=== PATIENT | female | born 1995 | race Two or more races ===

== ENCOUNTER 2016-10-07 10:14 | Emergency (ER) | payer MEDICAID ==
[~2016-10-07] VITALS: Ht 162.6 cm; Wt 60.8 kg
[2016-10-07 10:36] VITALS: BP 133/87
== END 2016-10-07 10:53 | disposition home or self-care (01) ==
LOC: ER 10:18
DX: H66.92 Otitis media, unspecified, left ear (principal)

== ENCOUNTER 2017-04-10 23:59 | Emergency (ER) | payer MEDICAID ==
[~2017-04-10] VITALS: Ht 162.6 cm; Wt 63.5 kg
[2017-04-11 00:39] LABS: Basophils # (auto) 0.1 uL; Basophils % (auto) 0.5 % (0.0-2.0); Eosinophils # (auto) 0.2 uL; Eosinophils % (auto) 1.3 % (0.0-7.0); Hematocrit 38.8 % (36.0-46.0); Hemoglobin 12.7 g/dL (12.2-16.2); Lymphocytes # (auto) 3.1 uL; Lymphocytes % (auto) 25.3 % (10.0-50.0); Mean Corpuscular Hemoglobin 27.2 pg (28.0-32.0); Mean Corpuscular Hgb Conc. 32.7 g/dL (32.0-36.0); Mean Corpuscular Volume 83.2 fL (80.0-100.0); Monocytes # (auto) 0.7 uL; Monocytes % (auto) 5.9 % (0.0-12.0); Neutrophils # (auto) 8.3 uL; Nucleated Red Blood Cells % 0.1 %; Platelet Count (auto) 288 10^3/uL (140-450); Red Blood Cells 4.66 10^6/uL (4.0-5.20); Red Cell Distribution Width 15.2 % (11.8-14.3); White Blood Cell 12.4 10^3/uL (4.4-10.8)
[2017-04-11 00:53] LABS: Albumin 3.6 g/dL (3.4-5.0); BUN/Creatinine Ratio 17.4; Calcium 8.9 mg/dL (8.5-10.1); Potassium 3.5 mmol/L (3.5-5.1)
[2017-04-11 00:56] LABS: Bilirubin, Total 0.1 mg/dL (0.2-1.0); Total Protein 7.7 g/dL (6.4-8.2)
[2017-04-11 01:11] LABS: Urine Bacteria FEW /hpf (None Seen); Urine Blood 3+ /uL (Negative); Urine Specific Gravity 1.014 (1.001-1.035); Urine WBC 211 /hpf (0 - 5)
[2017-04-11 01:15] VITALS: BP 145/89
== END 2017-04-11 01:29 | disposition home or self-care (01) ==
LOC: ER 04-11 00:01
DX: N39.0 Urinary tract infection, site not specified (principal)
CPT/HCPCS: 36415; 80053; 81001; 81025; 85025

== ENCOUNTER → 2018-04-18 | Outpatient (CLI) | payer MEDICAID | END | disposition home or self-care (01) | LOC: Rad HDHVI 15:03 | PROVIDERS: ATTEND Internal Medicine | DX: R06.02 Shortness of breath (principal); R42 Dizziness and giddiness; R00.2 Palpitations | CPT/HCPCS: 93306 ==

== ENCOUNTER → 2020-05-18 | Outpatient (CLI) | payer OTHER | END | disposition home or self-care (01) | LOC: LAB 13:42 | PROVIDERS: ATTEND Preventive Medicine Preventive Medicine/Occupational Environmental Medicine | DX: Z02.1 Encounter for pre-employment examination (principal) | CPT/HCPCS: 36415; 86706; 86735; 86762; 86765; 86787 ==

== ENCOUNTER → 2020-06-09 | Outpatient (CLI) | payer OTHER | END | disposition home or self-care (01) | LOC: LAB 14:48 | PROVIDERS: ATTEND Nurse Practitioner Family | DX: Z20.828 Contact with and (suspected) exposure to other viral communicable diseases (principal) | CPT/HCPCS: C9803; U0003 ==

== ENCOUNTER → 2020-08-26 | Outpatient (CLI) | payer MEDICAID ==
[2020-08-26 08:33] LABS: Urine Bacteria NONE SEEN /hpf (None Seen); Urine Blood 2+ /uL (Negative); Urine Specific Gravity 1.017 (1.001-1.035); Urine WBC <1 /hpf (0 - 5)
[2020-08-26 08:38] LABS: Basophils # (auto) 0.1 10 ^3/uL (0-0.2); Basophils % (auto) 0.9 % (0.0-2.0); Eosinophils # (auto) 0.1 10 ^3/uL (0-0.8); Eosinophils % (auto) 1.2 % (0.0-7.0); Hematocrit 41.1 % (36.0-46.0); Hemoglobin 13.9 g/dL (12.2-16.2); Lymphocytes # (auto) 2.5 10 ^3/uL (0.4-5.4); Lymphocytes % (auto) 29.8 % (10.0-50.0); Mean Corpuscular Hemoglobin 29.2 pg (28.0-32.0); Mean Corpuscular Hgb Conc. 33.8 g/dL (32.0-36.0); Mean Corpuscular Volume 86.3 fL (80.0-100.0); Monocytes # (auto) 0.4 10 ^3/uL (0-1.3); Monocytes % (auto) 4.3 % (0.0-12.0); Neutrophils # (auto) 5.3 10 ^3/uL (1.6-8.6); Neutrophils % (auto) 63.8 % (37.0-80.0); Platelet Count (auto) 346 10^3/uL (140-450); Red Blood Cells 4.76 10^6/uL (4.0-5.20); Red Cell Distribution Width 13.4 % (11.8-14.3); White Blood Cell 8.3 10^3/uL (4.4-10.8)
[2020-08-26 09:07] LABS: Albumin 3.4 g/dL (3.4-5.0); Calcium 9.1 mg/dL (8.5-10.1); Potassium 3.9 mmol/L (3.5-5.1)
[2020-08-26 09:12] LABS: BUN/Creatinine Ratio 13.9; Bilirubin, Total 0.4 mg/dL (0.2-1.0); Total Protein 7.7 g/dL (6.4-8.2)
[2020-08-26 09:49] LABS: Free T4 (Free Thyroxine) 1.24 ng/dL (0.89-1.76)
== END | disposition home or self-care (01) ==
LOC: LAB 08:14
PROVIDERS: ATTEND Internal Medicine
DX: D51.3 Other dietary vitamin B12 deficiency anemia (principal); I10 Essential (primary) hypertension; E11.9 Type 2 diabetes mellitus without complications; E55.9 Vitamin D deficiency, unspecified; D64.9 Anemia, unspecified; R00.2 Palpitations; R53.1 Weakness; R30.0 Dysuria
CPT/HCPCS: 36415; 80053; 80061; 81001; 82306; 82607; 83036; 84439; 84443; 85025

== ENCOUNTER → 2020-09-27 | Outpatient (CLI) | payer MEDICAID | END | disposition home or self-care (01) | LOC: Rad HDHVI 08:07 | PROVIDERS: ATTEND Internal Medicine | DX: R00.2 Palpitations (principal); R06.02 Shortness of breath | CPT/HCPCS: 93306 ==

== ENCOUNTER → 2020-10-03 | Outpatient (CLI) | payer MEDICAID ==
[~2020-10-03] VITALS: Ht 162.6 cm; Wt 65.3 kg
== END | disposition home or self-care (01) ==
LOC: Rad HDHVI 09:03
PROVIDERS: ATTEND Internal Medicine
DX: R07.9 Chest pain, unspecified (principal); Z82.49 Family history of ischemic heart disease and other diseases of the circulatory system
CPT/HCPCS: 93017

== ENCOUNTER 2024-01-24 14:30 | Emergency (ER) | payer MEDICAID ==
[~2024-01-24] VITALS: Ht 162.6 cm; Wt 75.0 kg
[2024-01-24 14:50] VITALS: PULSE 90; RESP 19; O2SAT 97
[2024-01-24] MEDS: SODIUM CHLORIDE 0.9% 1,000 ML IV ONE ×2 (14:55→16:31)
[2024-01-24 15:14] LABS: Basophils # (auto) 0.1 10 ^3/uL (0-0.2); Basophils % (auto) 0.8 % (0.0-2.0); Eosinophils # (auto) 0.1 10 ^3/uL (0-0.8); Eosinophils % (auto) 0.7 % (0.0-7.0); Hematocrit 43.6 % (36.0-46.0); Hemoglobin 14.5 g/dL (12.2-16.2); Lymphocytes # (auto) 1.8 10 ^3/uL (0.4-5.4); Mean Corpuscular Hemoglobin 29.7 pg (28.0-32.0); Mean Corpuscular Hgb Conc. 33.3 g/dL (32.0-36.0); Mean Corpuscular Volume 89.2 fL (80.0-100.0); Monocytes # (auto) 1.1 10 ^3/uL (0-1.3); Monocytes % (auto) 13.1 % (0.0-12.0); Neutrophils # (auto) 5.1 10 ^3/uL (1.6-8.6); Neutrophils % (auto) 63.4 % (37.0-80.0); Nucleated Red Blood Cells % 0.1 %; Red Blood Cells 4.89 10^6/uL (4.0-5.20); Red Cell Distribution Width 13.6 % (11.8-14.3); White Blood Cell 8.1 10^3/uL (4.4-10.8)
[2024-01-24 15:24] LABS: Chloride 105 mmol/L (98-107); Potassium 3.7 mmol/L (3.5-5.1); Sodium 136 mmol/L (136-145)
[2024-01-24 15:25] LABS: Anion Gap 4 (5-15); Calcium 10.1 mg/dL (8.7-10.4); Carbon Dioxide 27 mmol/L (20-30)
[2024-01-24 15:30] LABS: BUN/Creatinine Ratio 7.7 (10.0-20.0); Blood Urea Nitrogen 7 mg/dL (9-23); Glucose 92 mg/dL (74-106)
[2024-01-24] MEDS ORDERED: AMOX500C2 PO (16:47)
[2024-01-24] MEDS ORDERED: AZIT-185 PO (16:49)
[2024-01-24] MEDS: AZITHROMYCIN 250 MG TAB PO ONE (17:08)
[2024-01-24 17:26] VITALS: BP 123/74; PULSE 91; RESP 16; TEMP 98.9; O2SAT 95
== END 2024-01-24 18:00 | disposition home or self-care (01) ==
LOC: EEVIPCON 14:30 → ER 14:30
DX: J02.9 Acute pharyngitis, unspecified (principal); R50.9 Fever, unspecified
CPT/HCPCS: 36415; 71046; 80048; 85025; 96360; 96361; 99284; J7030

== ENCOUNTER 2024-12-17 08:31 | Day surgery (SDC) | payer BC ==
[2024-12-16 08:31] LABS: Hematocrit 45.3 % (36.0-46.0); Hemoglobin 15.1 g/dL (12.2-16.2); Mean Corpuscular Hemoglobin 30.1 pg (28.0-32.0); Mean Corpuscular Volume 90.3 fL (80.0-100.0); Nucleated Red Blood Cells % 0.1 %
[2024-12-16 08:41] LABS: Urine Protein, UAD Negative (Negative)
[2024-12-16 08:46] LABS: INR 1.05 (0.9-1.15); Partial Thromboplastin Time 27.6 SEC (24.5-34.5); Prothrombin Time 11.1 sec (9.3-11.8)
[2024-12-16 09:11] LABS: Alanine Aminotransferase 17 U/L (7-40); Alkaline Phosphatase 89 U/L (46-116); Anion Gap 8 (5-15); BUN/Creatinine Ratio 24.7 (10.0-20.0); Bilirubin, Total 0.5 mg/dL (0.2-1.0); Blood Urea Nitrogen 21 mg/dL (9-23); Calcium 10.4 mg/dL (8.7-10.4); Carbon Dioxide 27 mmol/L (20-31); Chloride 106 mmol/L (98-107); Potassium 4.3 mmol/L (3.5-5.1); Sodium 141 mmol/L (136-145); Total Protein 7.5 g/dL (5.7-8.2)
[2024-12-16 09:32] LABS: Albumin 4.8 g/dL (3.2-4.8); Glucose 67 mg/dL (74-106)
[~2024-12-17] VITALS: Ht 162.6 cm; Wt 75.3 kg
[2024-12-17] MEDS ORDERED: ceFAZolin 1GM/50ML 50 ML IV ONE (09:50)
[2024-12-17] MEDS ORDERED: PROPOFOL 10 MG/ML 20 ML IV ONE (10:34)
[2024-12-17] MEDS ORDERED: fentaNYL CITRATE 100 MCG/2 ML VL ONE (10:34)
[2024-12-17] MEDS ORDERED: MIDAZOLAM HCL 2MG/2ML 2ml VIAL (1mg/ml) ONE (10:34)
[2024-12-17] MEDS ORDERED: ROCURONIUM 10MG/ML 10ML VIAL IV ONE (10:34)
[2024-12-17] MEDS ORDERED: LIDOCAINE 2% (LOCAL ANESTH.) PF 5ml SDV ONE (10:35)
[2024-12-17] MEDS ORDERED: ONDANSETRON HCL 4 MG/2 ML VIAL ONE (10:35)
[2024-12-17] MEDS ORDERED: METOCLOPRAMIDE HCL 5MG/ml INJ 2ml VIAL ONE (10:35)
[2024-12-17] MEDS: LIDOCAINE W/ EPINEPHRINE 1% 20ML VIAL ONE (11:03)
[2024-12-17] MEDS: BUPIVACAINE HCL 0.25% P/F 10 ML VIAL ONE (11:03)
[2024-12-17] MEDS ORDERED: HYDROmorphone HCL 2 MG/ML VL/or syr ONE (11:05)
[2024-12-17] MEDS ORDERED: POVIDONE IODINE 10 % TOPICAL OINT 30GM TOP ONE (11:17)
[2024-12-17] MEDS ORDERED: SUGAMMADEX 200mg/2ml Vial (100MG/ML) IV ONE (11:18)
[2024-12-17 11:28] VITALS: PULSE 75; RESP 12; O2SAT 94
[2024-12-17] MEDS ORDERED: ACE3T PO (11:39)
[2024-12-17] MEDS ORDERED: CIPR-173 PO (11:41)
[2024-12-17] MEDS ORDERED: ONDANSETRON HCL 4 MG/2 ML VIAL IV ONE (12:00)
[2024-12-17] MEDS ORDERED: HYDROmorphone HCL 2 MG/ML VL/or syr IV PRN (12:00)
[2024-12-17] MEDS ORDERED: METOCLOPRAMIDE HCL 5MG/ml INJ 2ml VIAL IV ONE (12:00)
--- NOTE | 2024-12-17 12:00 | DVHOP ---
DATE OF SURGERY: 12/17/2024 SURGEON: Louis Rajan MD. GAS DISTRIBUTION AND EMERGENCY CLERK: Sanjay Salinas. ANESTHESIA: General endotracheal. ANESTHESIOLOGIST: Nurse cost manager. DESCRIPTION OF PROCEDURE: Under adequate anesthesia, the patient prone on the operating room table, the skin prepped and draped. A horizontal incision was made over the visible bulge of the skin on the neck. The adipose tissue was incised and the lipoma excised down to the muscle, submitted for histopathologic examination. The wound was irrigated. Irrigant was aspirated. Approximation accomplished utilizing Prolene sutures in a mattress fashion and a pressure bandage was then applied. The patient remained stable throughout the procedure, left the operating room following accurate needle and sponge count. The family was thoroughly informed in the waiting area. Louis Rajan MD PF/NGOZI TID: [id number] RECEIPT: [id number]
[2024-12-17 12:25] VITALS: BP 114/74; PULSE 87; RESP 18; O2SAT 97
== END 2024-12-17 12:40 | disposition home or self-care (01) ==
LOC: SUR 08:31 → EEVIPCON 11:30 → SUR 12:40
PROVIDERS: ATTEND Surgery
DX: D17.0 Benign lipomatous neoplasm of skin and subcutaneous tissue of head, face and neck (principal); Z98.890 Other specified postprocedural states; Z91.041 Radiographic dye allergy status
CPT/HCPCS: 21556; 36415; 80053; 81001; 84702; 85025; 85610; 85730; 88305; J0690; J1171; J2003; J2250; J2405; J2704; J2765; J3010; J3490

== ENCOUNTER 2025-01-07 07:06 | Day surgery (SDC) | payer BC ==
[2025-01-06 09:08] LABS: Urine Protein, UAD Negative (Negative)
[2025-01-06 09:11] LABS: Hematocrit 44.1 % (36.0-46.0); Hemoglobin 14.9 g/dL (12.2-16.2); Mean Corpuscular Hemoglobin 30.3 pg (28.0-32.0); Mean Corpuscular Volume 89.4 fL (80.0-100.0); Nucleated Red Blood Cells % 0.1 %
[2025-01-06 09:18] LABS: INR 1.09 (0.9-1.15); Partial Thromboplastin Time 29.6 SEC (24.5-34.5); Prothrombin Time 11.5 sec (9.3-11.8)
[2025-01-06 09:34] LABS: Alanine Aminotransferase 12 U/L (7-40); Albumin 4.7 g/dL (3.2-4.8); Alkaline Phosphatase 69 U/L (46-116); Anion Gap 8 (5-15); BUN/Creatinine Ratio 16.5 (10.0-20.0); Blood Urea Nitrogen 14 mg/dL (9-23); Carbon Dioxide 26 mmol/L (20-31); Chloride 105 mmol/L (98-107); Potassium 4.2 mmol/L (3.5-5.1); Sodium 139 mmol/L (136-145); Total Protein 7.3 g/dL (5.7-8.2)
[2025-01-06 09:35] LABS: Bilirubin, Total 0.7 mg/dL (0.2-1.0)
[2025-01-06 09:36] LABS: Calcium 10.4 mg/dL (8.7-10.4); Glucose 108 mg/dL (74-106)
[~2025-01-07] VITALS: Ht 30.5 cm; Wt 0.5 kg
[~2025-01-07 07:06] MED LIST: ACE3T PO
[2025-01-07] MEDS ORDERED: GLYCOPYRROLATE 0.2 MG/ML 1ML VIAL ONE (09:57)
[2025-01-07] MEDS ORDERED: PROPOFOL 10 MG/ML 20 ML IV ONE ×2 (09:57→10:33)
[2025-01-07] MEDS ORDERED: LIDOCAINE 1% INJ PF 5ML AMP ONE (09:57)
[2025-01-07] MEDS ORDERED: KETOROLAC TROMETH 30 MG/ML 1ML VIAL ONE (09:57)
[2025-01-07] MEDS ORDERED: ONDANSETRON HCL 4 MG/2 ML VIAL ONE (09:57)
[2025-01-07] MEDS ORDERED: KETAMINE 50mg/ML 1ml syringe ONE (09:58)
[2025-01-07] MEDS: ceFAZolin 2 GM/D5W50ml 50 ML IV ONE (10:05)
[2025-01-07] MEDS: ceFAZolin 1GM VL ONE (10:13)
[2025-01-07] MEDS ORDERED: BACITRACIN TOP OINT 1 UD PKG TOP ONE (10:37)
[2025-01-07] MEDS: LIDOCAINE W/ EPINEPHRINE 1% 20ML VIAL ONE (10:38)
[2025-01-07 10:45] VITALS: PULSE 82; RESP 15; TEMP 97.8; O2SAT 98
[2025-01-07] MEDS ORDERED: BUPIVACAINE HCL 0.25% P/F 10 ML VIAL ONE (10:50)
[2025-01-07 11:00] VITALS: BP 98/58; PULSE 53; RESP 14; O2SAT 100
[2025-01-07] MEDS ORDERED: FLUMAZENIL 0.1 MG/ML INJ 10ML MDV IV PRN (11:00)
[2025-01-07] MEDS ORDERED: HYDROmorphone HCL 2 MG/ML VL/or syr IV PRN (11:00)
[2025-01-07] MEDS ORDERED: NALOXONE HCL 0.4 MG/ML VIAL IV PRN (11:00)
[2025-01-07] MEDS ORDERED: hydrALAZINE HCL 20 MG/ML VL IV PRN (11:00)
[2025-01-07] MEDS ORDERED: ONDANSETRON HCL 4 MG/2 ML VIAL IV PRN (11:00)
[2025-01-07] MEDS ORDERED: fentaNYL CITRATE 100 MCG/2 ML VL IV PRN (11:00)
[2025-01-07] MEDS ORDERED: CLIN1CAP70 PO (11:22)
[2025-01-07] MEDS ORDERED: ACE3T PO (11:22)
--- NOTE | 2025-01-07 11:37 | DVHOP ---
DATE OF SURGERY: 01/07/2025 PREOPERATIVE DIAGNOSIS: Nonhealing wound from a fibrolipoma removal, posterior neck. POSTOPERATIVE DIAGNOSIS: Nonhealing wound from a fibrolipoma removal, posterior neck. SURGEON: Louis Rajan MD RN TRANSITIONAL CARE: Sanjay Salinas NP ANESTHESIA: Local with IV sedation. ANESTHESIOLOGIST: [place]. PROCEDURE: Debridement and re-closure of wound. DESCRIPTION OF PROCEDURE: Under adequate anesthesia, with the patient prone, the patient's neck and upper back were prepped and draped. A 1 L of lavage with Ancef was administered by pulse lavage. Then, 0.25% Marcaine with epinephrine was infiltrated into the skin. The skin was debrided of granulation, small amount of devitalized tissue. The depth of the wound was debrided as well, with specimen sent as debridement tissue. The wound was then closed using a #1 Prolene suture over a small Nate drain, which was inserted and secured with a 3-0 nylon suture. The closure was through all of the layers of the skin and subcutaneous tissues down to the muscle. The sutures will remain for at least 3 weeks prior to removal. The wound was then covered with antibiotic ointment and a sterile dressing. The patient remained stable throughout the procedure and left the operating room following an accurate needle and sponge count. Her mother, Lexii Azevedo, was thoroughly informed by phone at [phone]. Louis Rajan MD PF/JOSE TID: [id number] RECEIPT: [id number]
== END 2025-01-07 11:50 | disposition home or self-care (01) ==
LOC: SUR 07:06
PROVIDERS: ATTEND Surgery
DX: S10.80XA Unspecified superficial injury of other specified part of neck, initial encounter (principal); D17.0 Benign lipomatous neoplasm of skin and subcutaneous tissue of head, face and neck; Z98.890 Other specified postprocedural states; Z91.041 Radiographic dye allergy status; X58.XXXA Exposure to other specified factors, initial encounter; Y93.89 Activity, other specified; Y92.89 Other specified places as the place of occurrence of the external cause; Y99.8 Other external cause status
CPT/HCPCS: 13160; 36415; 80053; 81001; 84702; 85025; 85610; 85730; 88305; J0690; J1100; J1885; J2405; J2704; J3490; J7030

== ENCOUNTER 2025-02-24 13:02 | Outpatient (CLI) | payer BC ==
[~2025-02-24 13:02] MED LIST changes: +CIPR-173 PO; +CLIN1CAP70 PO
[2025-02-24 13:30] LABS: Hematocrit 44.9 % (36.0-46.0); Hemoglobin 15.4 g/dL (12.2-16.2); Mean Corpuscular Hemoglobin 30.3 pg (28.0-32.0); Mean Corpuscular Volume 88.4 fL (80.0-100.0); Nucleated Red Blood Cells % 0.0 %
[2025-02-24 13:49] LABS: Iron 74.0 ug/dL (50-170)
[2025-02-24 13:52] LABS: Alanine Aminotransferase 14 U/L (7-40); Alkaline Phosphatase 102 U/L (46-116); Anion Gap 10 (5-15); BUN/Creatinine Ratio 17.9 (10.0-20.0); Blood Urea Nitrogen 15 mg/dL (9-23); Calcium 10.1 mg/dL (8.7-10.4); Carbon Dioxide 27 mmol/L (20-31); Chloride 101 mmol/L (98-107); Glucose 99 mg/dL (74-106); Potassium 4.1 mmol/L (3.5-5.1); Sodium 138 mmol/L (136-145)
[2025-02-24 13:53] LABS: Bilirubin, Total 0.7 mg/dL (0.2-1.0)
[2025-02-24 13:54] LABS: Albumin 5.1 g/dL (3.2-4.8); Total Iron Binding Capacity 352.0 ug/dL (250-425); Total Protein 8.5 g/dL (5.7-8.2)
[2025-02-24 13:55] LABS: Ferritin 32.2 ng/mL (10-291)
== END 2025-02-24 17:00 | disposition home or self-care (01) ==
LOC: LAB 13:02
PROVIDERS: ATTEND Licensed Practical Nurse
DX: R53.83 Other fatigue (principal)
CPT/HCPCS: 36415; 80053; 82306; 82607; 82728; 82746; 83540; 83550; 85025

== ENCOUNTER → 2025-03-17 | Outpatient (CLI) | payer BC ==
[2025-03-17 08:15] LABS: Hematocrit 40.7 % (36.0-46.0); Hemoglobin 13.8 g/dL (12.2-16.2); Mean Corpuscular Hemoglobin 30.4 pg (28.0-32.0); Mean Corpuscular Volume 89.5 fL (80.0-100.0); Nucleated Red Blood Cells % 0.1 %
[2025-03-17 08:29] LABS: Alanine Aminotransferase 10 U/L (7-40); Alkaline Phosphatase 79 U/L (46-116); Calcium 9.4 mg/dL (8.7-10.4); Carbon Dioxide 26 mmol/L (20-31); Chloride 106 mmol/L (98-107); Glucose 105 mg/dL (74-106); Potassium 3.9 mmol/L (3.5-5.1); Sodium 141 mmol/L (136-145); Triglycerides 74 mg/dL (< 150)
[2025-03-17 08:30] LABS: Albumin 4.5 g/dL (3.2-4.8); Anion Gap 9 (5-15); BUN/Creatinine Ratio 20.0 (10.0-20.0); Blood Urea Nitrogen 16 mg/dL (9-23); Cholesterol 148 mg/dL (< 200); Magnesium 2.0 mg/dL (1.6-2.6); Total Protein 7.6 g/dL (5.7-8.2)
[2025-03-17 08:31] LABS: Bilirubin, Total 0.4 mg/dL (0.2-1.0); HDL Cholesterol 43 mg/dL (40-59)
[2025-03-17 11:30] LABS: Ferritin 27.9 ng/mL (10-291)
[2025-03-17 13:50] LABS: Hepatitis A Total Antibody Positive (Negative); Hepatitis B Surface Antigen Negative (Negative); Hepatitis C Antibody Negative (Negative)
== END | disposition home or self-care (01) ==
LOC: LAB 07:49
PROVIDERS: ATTEND Licensed Practical Nurse
DX: E78.5 Hyperlipidemia, unspecified (principal); R73.03 Prediabetes; R53.83 Other fatigue; E55.9 Vitamin D deficiency, unspecified; K21.9 Gastro-esophageal reflux disease without esophagitis; Z13.1 Encounter for screening for diabetes mellitus
CPT/HCPCS: 36415; 80053; 80061; 82306; 82607; 82672; 82728; 83036; 83735; 84443; 85025; 86703; 86704; 86706; 86708; 86803; 87340

== ENCOUNTER 2025-04-23 16:05 | Outpatient (CLI) | payer BC | END 2025-04-26 17:00 | disposition home or self-care (01) | LOC: LAB 16:05 | PROVIDERS: ATTEND Licensed Practical Nurse | DX: E55.9 Vitamin D deficiency, unspecified (principal); R79.89 Other specified abnormal findings of blood chemistry | CPT/HCPCS: 82306; 82607 ==